=== PATIENT | female | born 1955 | race Caucasian/White ===

== ENCOUNTER 2019-01-30 06:05 | Day surgery (SDC) | payer OTHER ==
[~2019-01-30 06:05] MED LIST: BALANCED SALT IRRIG OPHTH SOLN 15 ML BOTTLE. ONE; CHOL100013 PO; CHONDROIT-SOD-HYALURONATE KIT. ONE; LIDOCAINE 1% PF 2 ML VIAL. ONE; LIDOCAINE 2% JELLY 6ML IN APPLICATOR. MM SCH; NEO/POLYMYX/DEXAMETH OPHTH OINTMENT 3.5GM TUBE. ONE; PROPARACAINE 0.5% OPHTH SOLUTION 15ML BOTTLE. OD ONE
[2019-01-30] MEDS ORDERED: CIPROFLOXACIN 0.3% OPHTH SOLUTION 5ML BOTTLE. OD ONE (06:15)
[2019-01-30] MEDS: CYCLOPENTOLATE 1% OPTH SOLUTION 2ML BOTTLE. OD SCH ×3 (06:51→06:59)
[2019-01-30] MEDS: PHENYLEPHRINE 10% OPHTH SOLUTION 5ML BOTTLE. OD SCH ×3 (06:51→06:59)
[2019-01-30] MEDS ORDERED: IV RINGERS,LACTATED 1000ML 1,000 ML IV SCH (07:00)
[2019-01-30] MEDS ORDERED: fentaNYL PF VIAL 100 MCG/2 ML VIAL IV PRN ×2 (07:00)
[2019-01-30] MEDS ORDERED: HYDROmorphone 2 MG/ML VIAL IV PRN (07:00)
[2019-01-30] MEDS ORDERED: ONDANSETRON PF 4 MG/2 ML VIAL. IV PRN (07:00)
[2019-01-30] MEDS ORDERED: MORPHINE SULFATE 2 MG/ML VIAL. IV PRN (07:00)
[2019-01-30] MEDS ORDERED: PROCHLORPERAZINE 10 MG/2 ML VIAL. IV PRN (07:00)
[2019-01-30] MEDS ORDERED: MIDAZOLAM HCL/PF 2 MG/2 ML VIAL. ONE (08:11)
[2019-01-30 09:20] VITALS: BP 156/76
--- NOTE | 2019-01-30 10:46 | OP ---
DATE OF SURGERY: 01/30/2019 PREOPERATIVE DIAGNOSIS: Senile cataract, right eye. POSTOPERATIVE DIAGNOSIS: Senile cataract, right eye. PROCEDURE: Phacoemulsification with posterior chamber lens implant, right eye. ANESTHESIA: Topical with MAC. DESCRIPTION OF PROCEDURE: The patient's dilating and anesthetic drops applied in the outpatient department and the [place] balloon cuff placed over the eye for about 10 minutes for decompression. The patient was then brought to the operating room and the right eye was prepped and draped in the usual sterile manner for an intraocular procedure. A lid speculum was placed between the eyelids and the operating microscope brought into position and it was noted there was very good pupillary dilation. A paracentesis incision was made superior temporally, followed by an injection of Viscoat. The primary 2.4 mm incision was made temporally, and a 5.5 to 6 mm capsulorrhexis was performed without difficulty. The lens nucleus was hydrodissected and the phacoemulsification handpiece was used to phacoemulsify the nucleus without difficulty. The I/A handpiece was used for cortical cleanup. The bag was polished and then the bag was insufflated with Provisc. A 10.5 diopter posterior chamber lens was then placed into the bag without difficulty and positioned horizontally. The Provisc was aspirated with the I/A handpiece. The wound was hydrated and the eye pressurized. The wound was checked for leaks and there were none. The speculum and drape were removed and Maxitrol ointment instilled in the conjunctival sac and the eye was shielded. The patient was taken to the recovery room in satisfactory condition. There were no complications. The patient's daughter is an purchasing and fiscal clerk and we will see her tomorrow for postoperative check. K CHERYL ST MD DR: KAMINI/georges JOB#: [id number] / [id number]
== END 2019-01-30 09:23 | disposition home or self-care (01) ==
LOC: SURG 06:05
PROVIDERS: ATTEND Ophthalmology
DX: H25.11 Age-related nuclear cataract, right eye (principal); H43.813 Vitreous degeneration, bilateral; Z98.890 Other specified postprocedural states; Z83.511 Family history of glaucoma; Z79.899 Other long term (current) drug therapy; Z88.2 Allergy status to sulfonamides
CPT/HCPCS: 66984; C1780; J0171; J2250

== ENCOUNTER → 2019-03-04 | Outpatient (CLI) | payer OTHER ==
[~2019-03-04] MED LIST changes: -BALANCED SALT IRRIG OPHTH SOLN 15 ML BOTTLE. ONE; -CHONDROIT-SOD-HYALURONATE KIT. ONE; -LIDOCAINE 1% PF 2 ML VIAL. ONE; -LIDOCAINE 2% JELLY 6ML IN APPLICATOR. MM SCH; -NEO/POLYMYX/DEXAMETH OPHTH OINTMENT 3.5GM TUBE. ONE; -PROPARACAINE 0.5% OPHTH SOLUTION 15ML BOTTLE. OD ONE; +REGADENOSON 0.4 MG/5 ML DISP.SYRIN. IV ONE
--- NOTE | 2019-03-04 12:20 | RAD ---
MR#: [id number] Date of Study: 03/04/2019 Ordering Physician: DOROTHY PETERSEN, Referring Physician: ELIAS BALLESTEROS Tech: KIERRA Lozano, ARRT (R) (N) APPROVED REPORT Test Type: Pharmacological Stress Nurse/Tech: Ann Purvis R.N. Test Indications: hypertension Cardiac History: irregular heart beat,htn Medications: see ehr Medical History: see ehr Resting ECG: SB Resting Heart Rate: 48 bpm Resting Blood Pressure: 131/66mmHg Pretest Chest Pain: No chest pain Nurse/Tech Notes lungs cta, heart tones, Consent: The procedure was explained to the patient in lay terms. Informed consent was witnessed. Valentin eout was entered into [employer]. History and Stress Test performed by EMIL Samuel Pharm. Details Pharmacologic stress testing was performed using 0.4mg per 5ml of regadenoson given intravenously ove r 7-10 seconds. Stress Symptoms No chest pain or symptoms. POST EXERCISE Reason for Termination: Infusion complete Target HR: No Max HR: 102 bpm Max Blood Pressure: 137/56mmHg Chest Pain: No. Arrhythmia: No. ST Change: No. INTERPRETATION Stress EKG Conclusion: The resting EKG shows a sinus bradycardia, a septal Q wave and nonspecific ST -T wave changes. The stress EKG shows no significant changes from baseline. No EKG evidence of stressed induced ischemia. Imaging Protocol IMAGE PROTOCOL: Rest Tc-99m/stress Tc-99m 1 day Rest: Stress: Viability: Radiopharm.Tc99m AosijmezeCj22t Sestamibi Ezks78iSk 31.6mCi Img Date 03/04/2019 03/04/2019 Rest Admin Site:IV - Left AntecubitalAdministrator:RT Gadiel (R)(N) Stress Admin Site: IV - Left AntecubitalAdministrator: RT Gadiel (R)(N) STRESS DATA End Diast. Vol.68.0mlLVEDV index BSA42.0ml End Syst. Vol.18.0mlLVESV index BSA11.0ml Myocardial Fryl002.0gEject. Ukyphiah84.0% Stress Scores Regional WT0.00Summed WT0.00 Regional WM0.00Summed WM8.00 LV Perfusion The stress scans showed no significant defects. The rest scans showed no significant defects. Nuclear imaging shows no reversible ischemia or infarct. Wall Motion Left ventricular systolic function is normal with no regional wall motion abnormalities and an ejecti on fraction of 68%. LV Perf. Quant 17 Seg. SSS1.00 17 Seg. SRS0.00 17 Seg. SDS1.00 Stress Defect Extent (% LAD)0.00Rest Defect Extent (% LAD)0.00Rev. Defect Extent (% LAD)0.00 Stress Defect Extent (% LCX) 0.00Rest Defect Extent (% LCX)0.00Rev. Defect Extent (% LCX)0.00 Stress Defect Extent (% RCA)0.00Rest Defect Extent (% RCA)0.00Rev. Defect Extent (% RCA)0.00 Stress Defect Extent (% ITZEL)0.00Rest Defect Extent (% ITZEL)0.00Rev. Defect Extent (% ITZEL)0.00 IMPRESSION Stress Test Summary: Normal, Abnormal, Nondiagnostic Conclusion 1. No EKG evidence of stressed induced ischemia. 2. Nuclear imaging shows no reversible ischemia or infarct. 3. Normal left ventricular systolic function with an ejection fraction of 68%. 4. Low risk Lexiscan nuclear stress test. Signed by : James Kaufman MD Electronically Approved : 03/04/2019 12:20:01
== END | disposition home or self-care (01) ==
LOC: NM 08:00
PROVIDERS: ATTEND Internal Medicine Cardiovascular Disease
DX: R07.9 Chest pain, unspecified (principal); I10 Essential (primary) hypertension
CPT/HCPCS: 78452; 93017; A9500; J2785

== ENCOUNTER 2019-06-19 10:25 | Day surgery (SDC) | payer OTHER ==
[~2019-06-19 10:25] MED LIST changes: +HYDROmorphone 2 MG/ML VIAL IV PRN; +IV RINGERS,LACTATED 1000ML 1,000 ML IV SCH; +LIDOCAINE 1% PF 2 ML VIAL. ID PRN; +LOSA25TA54 PO; +MORPHINE SULFATE 2 MG/ML VIAL. IV PRN; +ONDANSETRON PF 4 MG/2 ML VIAL. IV PRN; +PROCHLORPERAZINE 10 MG/2 ML VIAL. IV PRN; -REGADENOSON 0.4 MG/5 ML DISP.SYRIN. IV ONE; +fentaNYL PF VIAL 100 MCG/2 ML VIAL IV PRN
[2019-06-19] MEDS ORDERED: PROPARACAINE 0.5% OPHTH SOLUTION 15ML BOTTLE. OS ONE (11:00)
[2019-06-19] MEDS ORDERED: PHENYLEPHRINE 2.5% OPHTH SOLUTION 2ML BOTTLE. OS SCH (11:01)
[2019-06-19] MEDS ORDERED: LIDOCAINE 1% PF 2 ML VIAL. ONE (12:03)
[2019-06-19] MEDS ORDERED: NEO/POLYMYX/DEXAMETH OPHTH OINTMENT 3.5GM TUBE. ONE (12:03)
[2019-06-19] MEDS ORDERED: CHONDROITIN-SOD-HYALURONATE 0.5 ML DISP.SYRIN. ONE (12:03)
[2019-06-19] MEDS ORDERED: CHONDROIT-SOD-HYALURONATE KIT. ONE (12:03)
[2019-06-19] MEDS: CYCLOPENTOLATE 1% OPTH SOLUTION 2ML BOTTLE. OS SCH ×3 (12:09→12:21)
[2019-06-19] MEDS: PHENYLEPHRINE 10% OPHTH SOLUTION 5ML BOTTLE. OS SCH ×3 (12:09→12:21)
[2019-06-19 13:30] VITALS: BP 154/70
--- NOTE | 2019-06-19 14:21 | OP ---
DATE OF SURGERY: 06/19/2019 PREOPERATIVE DIAGNOSIS: Senile cataract, left eye. POSTOPERATIVE DIAGNOSIS: Senile cataract, left eye. PROCEDURE: Phacoemulsification with posterior chamber lens implant, left eye. ANESTHESIA: Topical with MAC. DESCRIPTION OF PROCEDURE: The patient's dilating and anesthetic drops were applied in the outpatient department and the [place] balloon cuff used for about 10 minutes for decompression. The patient was then brought to the operating room and the left eye was prepped and draped in the usual sterile manner for an intraocular procedure. A lid speculum was placed between the eyelids and the operating microscope brought into position and it was noted that there was very good pupillary dilation. A paracentesis incision was made inferotemporally followed by an injection of Viscoat. The primary 2.4 mm incision was made temporally, and a 5.5 mm capsulorrhexis was performed without difficulty. The lens nucleus was hydrodissected and the phacoemulsification handpiece was used to phacoemulsify the nucleus without difficulty. The I/A handpiece was used for cortical cleanup. The bag was polished and then the bag insufflated with Provisc. A 10.5 diopter posterior chamber lens was then placed into the bag without difficulty. The Provisc was aspirated with the I/A handpiece. The wound was hydrated and the eye pressurized. The wound was checked for leaks and there were none. The speculum and drape were removed and Maxitrol ointment instilled in the conjunctival sac. The eye was shielded. The patient was taken to the recovery room in satisfactory condition. There were no complications and the patient's daughter who is an music worker will follow up with her in the morning. I will make contact with her by phone. K CHERYL ST MD DR: KAMINI/georges JOB#: [id number] / [id number]
[2019-06-20] MEDS ORDERED: LIDOCAINE 2% JELLY 6ML IN APPLICATOR. MM SCH (11:00)
[2019-06-20] MEDS ORDERED: CIPROFLOXACIN 0.3% OPHTH SOLUTION 5ML BOTTLE. OS ONE (11:15)
== END 2019-06-19 13:30 | disposition home or self-care (01) ==
LOC: SURG 10:25
PROVIDERS: ATTEND Ophthalmology
DX: H25.9 Unspecified age-related cataract (principal); Z88.1 Allergy status to other antibiotic agents
CPT/HCPCS: 66984; J0171; C1780

== ENCOUNTER 2020-07-15 07:16 | Day surgery (SDC) | payer OTHER ==
[~2020-07-15] VITALS: Ht 162.6 cm; Wt 58.5 kg
[~2020-07-15 07:16] MED LIST changes: +ACETAMINOPHEN 500 MG TABLET PO PRN; +LORA10TA68 PO; +ceFAZolin SODIUM IV Push 1 GM VIAL. IVP PRN
[2020-07-15] MEDS ORDERED: SUCCINYLCHOLINE 200 MG/10 ML VIAL. ONE (08:15)
[2020-07-15] MEDS ORDERED: ONDANSETRON PF 4 MG/2 ML VIAL. ONE (08:15)
[2020-07-15] MEDS ORDERED: ROCURONIUM 50 MG/5 ML VIAL. ONE (08:15)
[2020-07-15] MEDS ORDERED: fentaNYL PF VIAL 100 MCG/2 ML VIAL ONE (08:15)
[2020-07-15] MEDS ORDERED: PROPOFOL 10 MG/ML (20ML) VIAL. IV ONE (08:15)
[2020-07-15] MEDS ORDERED: LIDOCAINE 2% PF 5 ML VIAL. ONE (08:15)
[2020-07-15] MEDS ORDERED: DEXAMETHASONE SOD PHOS 4 MG/ML VIAL ONE (08:15)
[2020-07-15] MEDS ORDERED: MIDAZOLAM HCL/PF 2 MG/2 ML VIAL. ONE (08:16)
[2020-07-15] MEDS ORDERED: BUPIVACAINE-EPI 0.5%-1:200000 MPF 30 ML VIAL. ONE (08:40)
[2020-07-15] MEDS ORDERED: MINERAL OIL for SURGERY 10 ML VIAL. MC ONE (08:40)
[2020-07-15] MEDS ORDERED: GLYCOPYRROLATE 1 MG/5 ML VIAL. ONE (09:05)
[2020-07-15] MEDS ORDERED: ePHEDrine PF IN SALINE 50 MG/10 ML SYRINGE. IV ONE (09:15)
[2020-07-15] MEDS ORDERED: NEOSTIGMINE METHYLSULFATE 5 MG/5 ML SYRINGE. ONE (09:17)
[2020-07-15] MEDS ORDERED: KETOROLAC 30 MG/ML VIAL. ONE (09:47)
--- NOTE | 2020-07-15 09:52 | PDOC4 ---
Operative Note Operative Note Date: 07/15/2020 at 949 Preoperative diagnosis: Right inguinal hernia Postoperative diagnosis: Same Procedure: Robotic assisted laparoscopic right inguinal hernia repair with mesh Surgeon: Henrry Specimen: None Dictation: Patient is a 64-year-old female is complaining of a painful bulge in her right groin consistent with an inguinal hernia. Procedure of robotic assisted laparoscopic right inguinal hernia repair with mesh was explained to the patient in detail risk-benefit were also discussed including bleeding infection injury to intra-abdominal contents possible necessitating further or open operations alternatives to this procedure also discussed with the patient who seemed to understand and gave both verbal and written consent to have the procedure performed. Patient was taken to the operating room placed in the supine position general anesthesia was initiated once patient was sleeping intubated her abdomen was prepped and draped usual sterile fashion using ChloraPrep she was placed in low lithotomy positioning and an area just above her umbilicus was injected with quarter percent Marcaine with epinephrine incision was made 11 blade scalpel and a varies needle was placed within the abdomen. Pneumoperitoneum was achieved once this complete a millimeter da Purvi port was placed in a camera was placed within the abdomen which was inspected no other abnormalities were noted. 8 mm da Purvi port was placed in the left midabdomen and an 8 mm da Purvi port was placed in the left lateral abdomen all under direct visualization. The da Purvi robot was then brought and docked all port sites surgeon went to the robotic console using a grasper and Endo Rafael scissors the peritoneum was incised on the right side a flap was propagated inferiorly reducing the hernia contents and sac. A 3D max Bard mesh medium size for the right side was then placed over the hernia defect and the peritoneum was closed with a running 2 OV lock absorbable suture. The robot was undocked from all ports the pneumoperitoneum was reduced all ports removed this skin incisions all port sites were closed with 4 subcuticular Monocryl Mastisol Steri-Strips and island dressings were applied. Patient was awakened and extubated in the operating room taken to recovery in stable condition all sponge instrument needle counts listed as correct estimated blood loss 5 mL. MIGUEL ANGEL LOPEZ MD Jul 15, 2020 09:52
--- NOTE | 2020-07-15 09:53 | DISCH ---
DISCHARGE INSTRUCTIONS Condition on Discharge Condition on Discharge: Stable Activity After Discharge Activity Instructions for Disc: Avoid exertion Other activity instructions: No lifting more than 20 pounds for 2 weeks Diet after Discharge Diet after Discharge: Regular Wound Incision Care Other wound/incision instructi: May shower in 24 hours Contacting the [facility] after DC Call your doctor for: If your condition worsens Follow-Up Follow up with: Dr. Lopez in 2 weeks MIGUEL ANGEL LOPEZ MD Jul 15, 2020 09:53
[2020-07-15] MEDS ORDERED: SEVOFLURANE 16 TO 30 MINUTES. IH ONE (09:55)
[2020-07-15 10:50] VITALS: BP 148/73
== END 2020-07-15 11:30 | disposition home or self-care (01) ==
LOC: SURG 07:16
PROVIDERS: ATTEND Surgery
DX: K40.90 Unilateral inguinal hernia, without obstruction or gangrene, not specified as recurrent (principal); Z20.828 Contact with and (suspected) exposure to other viral communicable diseases; I10 Essential (primary) hypertension; Z88.2 Allergy status to sulfonamides; Z88.8 Allergy status to other drugs, medicaments and biological substances; Z79.899 Other long term (current) drug therapy
CPT/HCPCS: 49650; 87426; C1781; J0330; J0690; J1100; J1885; J2405; J2704; J2710; J3010; J3490; S2900; U0003; J2250